=== PATIENT | female | born 1960 | race Caucasian/White ===

== ENCOUNTER 2016-11-29 18:41 | Observation (INO) | payer OTHER ==
[~2016-11-29] VITALS: Ht 175.3 cm; Wt 87.0 kg
[2016-11-29 18:43] VITALS: BP 104/58; PULSE 85; RESP 16; TEMP 97.9; O2SAT 96
[2016-11-29] MEDS ORDERED: CLON0.5T PO (20:19)
[2016-11-29] MEDS ORDERED: MELA5TAB15 PO (20:19)
[2016-11-29] MEDS ORDERED: LEVO50TA4 PO (20:19)
[2016-11-29] MEDS ORDERED: CHOL5000 PO (20:19)
[2016-11-29 21:00] VITALS: BP 96/58; PULSE 86; RESP 16; O2SAT 99
[2016-11-29] MEDS ORDERED: SODIUM CHLORIDE 0.9% FLUSH 10 ML FLUSH IV FLUSH PRN (21:00)
--- NOTE | 2016-11-29 21:20 | PD ---
HPI Chief Complaint: Abnormal Results Time Seen by Provider: 21:00 Travel History International Travel<30 days: No Contact w/Intl Traveler<30days: No Traveled to known affect area: No History of Present Illness HPI Patient's 56-year-old female presented to emergency on the advice of her credit front office developer for evaluation of jaundice and cirrhosis. History of alcoholism, she has been clean for approximately one year. She has had a history of elevated liver enzymes. She reports over the last 5 months she's lost 40 pounds, she has no appetite, she reports nausea and feeling full. Recently more recently she has noticed the yellowing of her skin and eyes. She reports a worsening of the swelling to her lower legs now up to the level of her knees bilaterally. She states that her thinking is slowed. She does state that she is short of breath with exertion and feels cold. Patient has a history of hypothyroidism, alcoholism, neuropathy. PFSH Past Medical History Depression: Yes Cirrhosis: Yes (DIAGNOSED 11/25/16) Thyroid Disease: Yes (HYPO, DIAGNOSED 11/25/16) ?: Not Past Surgical History Appendectomy: Yes Hysterectomy: Yes (PARTIAL) Social History Alcohol Use: No ("FORMER ALCOHOLIC") Tobacco Use: Yes (CIGARS) Substance Use: No Allergies-Medications (Allergen,Severity, Reaction): Coded Allergies: No Known Allergies (Unverified , 11/29/16) Reported Meds & Prescriptions Reported Meds & Active Scripts Active Reported Levothyroxine (Levothyroxine Sodium) 50 Mcg Tab 50 Mcg PO DAILY Clonazepam 0.5 Mg Tab 0.25 Mg PO BID Vitamin D3 (Cholecalciferol) 5,000 Unit Cap 5,000 Units PO DAILY Melatonin 5 Mg Tab 3 Mg PO HS Review of Systems Except as stated in HPI: all other systems reviewed are Neg General / Constitutional: Positive: Chills Cardiovascular: Positive: Dyspnea on exertion, Edema Gastrointestinal: Positive: Nausea, Abdominal Pain (bloating/distention), Loss of Appetite Skin: Positive Change in Pigmentation Physical Exam Narrative GENERAL: Well-developed, well-nourished, alert female. Resting comfortable, no acute distress. SKIN: Warm and dry. Jaundiced HEAD: Atraumatic. Normocephalic. EYES: Pupils equal and round. Positive scleral icterus. No injection or drainage. ENT: No nasal bleeding or discharge. Mucous membranes pink and moist. NECK: Trachea midline. No JVD. CARDIOVASCULAR: Regular rate and rhythm. Murmur noted RESPIRATORY: No accessory muscle use. Clear to auscultation. Breath sounds equal bilaterally. GASTROINTESTINAL: Abdomen soft, non-tender, distended. Hepatic and splenic margins not palpable. Positive bowel sounds. No rebound, no guarding. MUSCULOSKELETAL: Extremities without clubbing, cyanosis. No obvious deformities. 2+ pitting bilateral lower extremity edema NEUROLOGICAL: Awake and alert. No obvious cranial nerve deficits. Motor grossly within normal limits. Five out of 5 muscle strength in the arms and legs. Normal speech. PSYCHIATRIC: Appropriate mood and affect; insight and judgment normal. Data Data Last Documented VS Vital Signs Date Time Temp Pulse Resp B/P Pulse Ox O2 Delivery O2 Flow Rate FiO2 11/29/16 23:00 86 18 103/64 99 Room Air 11/29/16 18:43 97.9 Orders Complete Blood Count With Diff (11/29/16 20:57) Comprehensive Metabolic Panel (11/29/16 20:57) Lipase (11/29/16 20:57) Prothrombin Time / Inr (Pt) (11/29/16 20:57) Act Partial Throm Time (Ptt) (11/29/16 20:57) Ct Abd/Pel W Iv Contrast(Rout) (11/29/16 20:57) Iv Access Insert/Monitor (11/29/16 20:57) Ecg Monitoring (11/29/16 20:57) Oximetry (11/29/16 20:57) NPO (11/29/16 20:57) Sodium Chloride 0.9% Flush (Ns Flush) (11/29/16 21:00) Electrocardiogram (11/29/16 20:57) Ammonia (11/29/16 20:57) Gamma Gt (Ggt) (11/29/16 20:57) Iohexol 350 Inj (Omnipaque 350 Inj) (11/29/16 23:26) Direct Bilirubin (11/30/16 00:09) Admit Order (Ed Use Only) (11/30/16 ) Place In Observation (11/30/16 ) Vital Signs (Adult) Q4H (11/30/16 00:08) Activity Oob With Assistance (11/30/16 00:08) Power Supply Engineer / Telemetry .CONTINUOUS (11/30/16 00:08) Diet Npo (11/30/16 Breakfast) Sodium Chloride 0.9% Flush (Ns Flush) (11/30/16 00:15) Sodium Chloride 0.9% Flush (Ns Flush) (11/30/16 09:00) Comprehensive Metabolic Panel (11/30/16 06:00) Complete Blood Count With Diff (11/30/16 06:00) Naloxone Inj (Narcan Inj) (11/30/16 00:15) Consult Gastroenterology (11/30/16 ) Labs Laboratory Tests Test 11/29/16 11/29/16 21:02 21:04 White Blood Count 16.7 TH/MM3 Red Blood Count 3.75 MIL/MM3 Hemoglobin 13.5 GM/DL Hematocrit 40.7 % Mean Corpuscular Volume 108.4 FL Mean Corpuscular Hemoglobin 36.0 PG Mean Corpuscular Hemoglobin 33.3 % Concent Red Cell Distribution Width 18.5 % Platelet Count 184 TH/MM3 Mean Platelet Volume 9.2 FL Neutrophils (%) (Auto) 81.1 % Lymphocytes (%) (Auto) 8.8 % Monocytes (%) (Auto) 9.0 % Eosinophils (%) (Auto) 0.7 % Basophils (%) (Auto) 0.4 % Neutrophils # (Auto) 13.5 TH/MM3 Lymphocytes # (Auto) 1.5 TH/MM3 Monocytes # (Auto) 1.5 TH/MM3 Eosinophils # (Auto) 0.1 TH/MM3 Basophils # (Auto) 0.1 TH/MM3 CBC Comment DIFF FINAL Differential Comment Prothrombin Time 16.1 SEC Prothromb Time International 1.4 RATIO Ratio Activated Partial 52.4 SEC Thromboplast Time Sodium Level 133 MEQ/L Potassium Level 4.3 MEQ/L Chloride Level 100 MEQ/L Carbon Dioxide Level 26.5 MEQ/L Anion Gap 7 MEQ/L Blood Urea Nitrogen 7 MG/DL Creatinine 0.47 MG/DL Estimat Glomerular Filtration 137 ML/MIN Rate Random Glucose 74 MG/DL Calcium Level 8.8 MG/DL Total Bilirubin 11.2 MG/DL Gamma Glutamyl Transpeptidase 303 U/L Aspartate Amino Transf 123 U/L (AST/SGOT) Alanine Aminotransferase 51 U/L (ALT/SGPT) Alkaline Phosphatase 247 U/L Total Protein 7.1 GM/DL Albumin 1.9 GM/DL Lipase 95 U/L Direct Bilirubin 7.9 MG/DL Ammonia 50 MCMOL/L MDM Medical Decision Making Medical Screen Exam Complete: Yes Emergency Medical Condition: Yes Interpretation(s) Vital Signs Date Time Temp Pulse Resp B/P Pulse Ox O2 Delivery O2 Flow Rate FiO2 11/29/16 18:43 97.9 85 16 104/58 96 Differential Diagnosis Cirrhosis versus coagulopathy versus obstruction versus metabolic abnormality versus other Narrative Course Patient is a 56-year-old female presenting for evaluation of jaundice. Labs and imaging ordered and pending. Patient's vital signs are stable. Care of patient transferred to my attending physician at that admission. He will determine patient's disposition. Carol Dumont Nov 29, 2016 21:20
[2016-11-29 21:27] VITALS: O2SAT 98
[2016-11-29 21:36] LABS: AUTOMATED NEUTROPHIL # 13.5 TH/MM3 (1.8-7.7); BASOPHIL # 0.1 TH/MM3 (0-0.2); BASOPHIL % 0.4 % (0.0-2.0); EOSINOPHIL # 0.1 TH/MM3 (0-0.4); EOSINOPHIL % 0.7 % (0.0-4.0); HEMATOCRIT 40.7 % (35.0-46.0); HEMO FLAGS DIFF FINAL; LYMPH % 8.8 % (9.0-44.0); LYMPHOCYTE # 1.5 TH/MM3 (1.0-4.8); MEAN CELL VOLUME 108.4 FL (80.0-100.0); MEAN CORPUSCULAR HGB CONC 33.3 % (32.0-36.0); NEUT % 81.1 % (16.0-70.0); PLATELET COUNT 184 TH/MM3 (150-450); RED BLOOD COUNT 3.75 MIL/MM3 (4.00-5.30); RED CELL DISTRIBUTION WIDTH 18.5 % (11.6-17.2); WHITE BLOOD COUNT 16.7 TH/MM3 (4.0-11.0)
[2016-11-29 21:48] LABS: APTT (PATIENT) 52.4 SEC (24.3-30.1); INTERNATIONAL NORMALIZED RATIO 1.4 RATIO; PROTHROMBIN TIME - PATIENT 16.1 SEC (9.8-11.6)
[2016-11-29 22:16] LABS: ALKALINE PHOSPHATASE 247 U/L (45-117); ALT (GPT) 51 U/L (10-53); TOTAL BILIRUBIN ADULT 11.2 MG/DL (0.2-1.0)
[2016-11-29 22:26] LABS: ANION GAP 7 MEQ/L (5-15); AST (GOT) 123 U/L (15-37); BICARBONATE 26.5 MEQ/L (21.0-32.0); BLOOD UREA NITROGEN 7 MG/DL (7-18); CHLORIDE 100 MEQ/L (98-107); GAMMA GT 303 U/L (5-55); GLOMERULAR FILTRATION RATE 137 ML/MIN (>89); POTASSIUM 4.3 MEQ/L (3.5-5.1); SODIUM (NA) 133 MEQ/L (136-145)
[2016-11-29 23:00] VITALS: BP 103/64; PULSE 86; RESP 18; O2SAT 99
[2016-11-29] MEDS ORDERED: IOHEXOL 350 MG/ML 10 ML VIAL (for RAD DIAG) IV ONE (23:26)
--- NOTE | 2016-11-29 23:34 | PD ---
Data Data Last Documented VS Vital Signs Date Time Temp Pulse Resp B/P Pulse Ox O2 Delivery O2 Flow Rate FiO2 11/29/16 21:27 98 Room Air 11/29/16 18:43 97.9 85 16 104/58 Orders Complete Blood Count With Diff (11/29/16 20:57) Comprehensive Metabolic Panel (11/29/16 20:57) Lipase (11/29/16 20:57) Prothrombin Time / Inr (Pt) (11/29/16 20:57) Act Partial Throm Time (Ptt) (11/29/16 20:57) Ct Abd/Pel W Iv Contrast(Rout) (11/29/16 20:57) Iv Access Insert/Monitor (11/29/16 20:57) Ecg Monitoring (11/29/16 20:57) Oximetry (11/29/16 20:57) NPO (11/29/16 20:57) Sodium Chloride 0.9% Flush (Ns Flush) (11/29/16 21:00) Electrocardiogram (11/29/16 20:57) Ammonia (11/29/16 20:57) Gamma Gt (Ggt) (11/29/16 20:57) Iohexol 350 Inj (Omnipaque 350 Inj) (11/29/16 23:26) Direct Bilirubin (11/30/16 00:09) Admit Order (Ed Use Only) (11/30/16 ) Place In Observation (11/30/16 ) Vital Signs (Adult) Q4H (11/30/16 00:08) Activity Oob With Assistance (11/30/16 00:08) Thermal Molder / Telemetry .CONTINUOUS (11/30/16 00:08) Diet Npo (11/30/16 Breakfast) Sodium Chloride 0.9% Flush (Ns Flush) (11/30/16 00:15) Sodium Chloride 0.9% Flush (Ns Flush) (11/30/16 09:00) Comprehensive Metabolic Panel (11/30/16 06:00) Complete Blood Count With Diff (11/30/16 06:00) Naloxone Inj (Narcan Inj) (11/30/16 00:15) Consult Gastroenterology (11/30/16 ) Labs Laboratory Tests Test 11/29/16 11/29/16 21:02 21:04 White Blood Count 16.7 TH/MM3 Red Blood Count 3.75 MIL/MM3 Hemoglobin 13.5 GM/DL Hematocrit 40.7 % Mean Corpuscular Volume 108.4 FL Mean Corpuscular Hemoglobin 36.0 PG Mean Corpuscular Hemoglobin 33.3 % Concent Red Cell Distribution Width 18.5 % Platelet Count 184 TH/MM3 Mean Platelet Volume 9.2 FL Neutrophils (%) (Auto) 81.1 % Lymphocytes (%) (Auto) 8.8 % Monocytes (%) (Auto) 9.0 % Eosinophils (%) (Auto) 0.7 % Basophils (%) (Auto) 0.4 % Neutrophils # (Auto) 13.5 TH/MM3 Lymphocytes # (Auto) 1.5 TH/MM3 Monocytes # (Auto) 1.5 TH/MM3 Eosinophils # (Auto) 0.1 TH/MM3 Basophils # (Auto) 0.1 TH/MM3 CBC Comment DIFF FINAL Differential Comment Prothrombin Time 16.1 SEC Prothromb Time International 1.4 RATIO Ratio Activated Partial 52.4 SEC Thromboplast Time Sodium Level 133 MEQ/L Potassium Level 4.3 MEQ/L Chloride Level 100 MEQ/L Carbon Dioxide Level 26.5 MEQ/L Anion Gap 7 MEQ/L Blood Urea Nitrogen 7 MG/DL Creatinine 0.47 MG/DL Estimat Glomerular Filtration 137 ML/MIN Rate Random Glucose 74 MG/DL Calcium Level 8.8 MG/DL Total Bilirubin 11.2 MG/DL Gamma Glutamyl Transpeptidase 303 U/L Aspartate Amino Transf 123 U/L (AST/SGOT) Alanine Aminotransferase 51 U/L (ALT/SGPT) Alkaline Phosphatase 247 U/L Total Protein 7.1 GM/DL Albumin 1.9 GM/DL Lipase 95 U/L Ammonia 50 MCMOL/L [facility] Supervised Visit with PIA: Yes Interpretation(s) My review of EKG: Normal sinus rhythm at a rate of 86, normal axis, normal intervals, no acute ischemia. LABS: CBC is remarkable for white count of 16.7 thousand Markedly elevated AST ALT and total bili and alkaline phosphatase. Ammonia [address] abdomen and pelvis: Narrative Course The history, exam, and medical decision-making in the associated mid-level provider note were completed with my assistance. I reviewed and agree with the findings presented. I attest that I had a [id number] encounter with the patient on the same day, and personally performed and documented my assessment and findings in the medical record. *My assessment and Findings: Is a 56 year-old woman is a history of liver disease or past year or so. She quit drinking about a year or so ago. She presents emergency room referred in from her GI doctors office. She reports she saw Dr. Alvarado but states that she saw a female provider. She states that she went in because she was having worsening abdominal pain and distention and jaundice as well as worsening neuropathy symptoms she describes as generalized weakness and difficulty making a single step. Labs show significant lab abnormalities. Is apparently her acute over the past week or so as far as much worsening she's had. We don't have any old lab tests for her. I called and spoke with Dr. Pringle who did not see the patient is not familiar with her. It's unclear exactly why she was referred emergently to the ED. She does have multiple lab abnormalities that are of unclear chronicity. Speak with Dr. Mcconnell 2, will plan to observe the patient overnight, monitor for any evidence of infection, have GI see her and speak with the provider that saw her to get more information. Diagnosis Primary Impression: Cirrhosis Additional Impression: Liver failure Admitting Information Admitting Physician Requests: Admit Morteza Ferreira MD Nov 29, 2016 23:34
--- NOTE | 2016-11-29 23:43 | RADRPT ---
EXAM DATE/TIME: 11/29/2016 23:25 [facility] COMPARISON: No previous studies available for comparison. INDICATIONS : Abnormal labs and weight loss. IV CONTRAST: 95 cc Omnipaque 350 (iohexol) IV ORAL CONTRAST: No oral contrast ingested. RADIATION DOSE: 14.75 CTDIvol (mGy) MEDICAL HISTORY : Hypothyroidism. Cirrhosis. SURGICAL HISTORY : Appendectomy. Hysterectomy. ENCOUNTER: Initial ACUITY: 1 day PAIN SCALE: 0/10 LOCATION: abdomen TECHNIQUE: Volumetric scanning of the abdomen and pelvis was performed. Using automated exposure control and ad justment of the mA and/or kV according to patient size, radiation dose was kept as low as reasonably achievable to obtain optimal diagnostic quality images. DICOM format image data is available electro nically for review and comparison. FINDINGS: LOWER LUNGS: Atelectasis right lung base with small effusion. Left lung bases clear LIVER: Homogeneous density without lesion. The liver appears to be enlarged measuring 21.9 cm. There is telly e fatty infiltration throughout the liver. There is no dilation of the biliary tree. No calcified ga llstones. There is a trace of ascites adjacent to the liver SPLEEN: Normal size without lesion. There is a trace of ascites adjacent to spleen. PANCREAS: Within normal limits. KIDNEYS: Normal in size and shape. There is no mass, stone or hydronephrosis. ADRENAL GLANDS: Within normal limits. VASCULAR: There is no aortic aneurysm. BOWEL/MESENTERY: The stomach, small bowel, and colon demonstrate no acute abnormality. There is stool throughout the colon. There is no free intraperitoneal air. There is a trace of fluid in the lower abdomen. There is nonspecific edema in the mesenteric fat. ABDOMINAL WALL: Within normal limits. There is some nonspecific edema in the subcutaneous soft tissues. RETROPERITONEUM: There is no lymphadenopathy. BLADDER: No wall thickening or mass. REPRODUCTIVE: Within normal limits. INGUINAL: There is no lymphadenopathy or hernia. MUSCULOSKELETAL: Within normal limits for patient age. CONCLUSION: 1. There is fatty infiltration throughout the liver. The liver is enlarged measuring 21.9 cm. 2. There is a trace of free fluid in the upper abdomen and in the lower pelvis. 3. There is nonspecific edema in the subcutaneous soft tissues of the abdominal wall and mesenteric f at. 4. Mild right lower lung atelectasis with small effusion. Leoncio Parsons MD on November 29, 2016 at 23:36 Board Certified Radiologist. This report was verified electronically.
[2016-11-30] VITALS (8 sets, daily range): BP systolic 89–108; BP diastolic 52–62; PULSE 74–86; RESP 14–20; TEMP 96.6–98.6; O2SAT 92–96
[2016-11-30] MEDS ORDERED: NALOXONE HCL 0.4 MG/ML AMP IV PRN (00:15)
[2016-11-30] MEDS ORDERED: SODIUM CHLORIDE 0.9% FLUSH 10 ML FLUSH IV FLUSH PRN (00:15)
[2016-11-30 07:08] LABS: AUTOMATED NEUTROPHIL # 10.9 TH/MM3 (1.8-7.7); BASOPHIL # 0.1 TH/MM3 (0-0.2); BASOPHIL % 1.1 % (0.0-2.0); EOSINOPHIL # 0.2 TH/MM3 (0-0.4); EOSINOPHIL % 1.4 % (0.0-4.0); HEMATOCRIT 34.3 % (35.0-46.0); HEMO FLAGS DIFF FINAL; LYMPH % 12.5 % (9.0-44.0); LYMPHOCYTE # 1.8 TH/MM3 (1.0-4.8); MEAN CELL VOLUME 107.3 FL (80.0-100.0); MEAN CORPUSCULAR HEMOGLOBIN 36.3 PG (27.0-34.0); MEAN CORPUSCULAR HGB CONC 33.9 % (32.0-36.0); MONO % 7.5 % (0.0-8.0); NEUT % 77.5 % (16.0-70.0); PLATELET COUNT 146 TH/MM3 (150-450); RED CELL DISTRIBUTION WIDTH 18.1 % (11.6-17.2); WHITE BLOOD COUNT 14.1 TH/MM3 (4.0-11.0)
[2016-11-30 07:19] LABS: ALT (GPT) 41 U/L (10-53)
[2016-11-30 07:29] LABS: ALKALINE PHOSPHATASE 204 U/L (45-117); ANION GAP 5 MEQ/L (5-15); AST (GOT) 92 U/L (15-37); BICARBONATE 25.8 MEQ/L (21.0-32.0); BLOOD UREA NITROGEN 7 MG/DL (7-18); CHLORIDE 104 MEQ/L (98-107); GLOMERULAR FILTRATION RATE 259 ML/MIN (>89); SODIUM (NA) 135 MEQ/L (136-145); TOTAL BILIRUBIN ADULT 8.8 MG/DL (0.2-1.0)
[2016-11-30 07:30] LABS: POTASSIUM 4.4 MEQ/L (3.5-5.1)
--- NOTE | 2016-11-30 08:17 | PD.CONS ---
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 She was referred to our office for evaluation of elevated bilirubin and possible need for liver biopsy. She was seen on November 29, 2016, complaining of intermittent nausea and vomiting, decreased appetite, early satiety, and a 40 pound weight loss over the past 6 months. She also reported increased abdominal distention and swelling in her lower extremities. Her last outpatient labs revealed total bilirubin of 13.7, AST 144 ALT 68 alkaline phosphatase 317. She was referred to the ER for imaging and possible paracentesis. The patient reports that she was first told that she had liver cirrhosis last . She has a hx of heavy alcohol abuse , but states that she quit completely December 14, 2015. She has been jaundiced for about a week and started having increasing abdominal distention about 2 days ago. She is not on any diuretics at home. She reports decreased appetite with early satiety and intermittent nausea. She states that she can no longer taste foods and has lost about 40 lbs in 5 months. She has had intermittent chills, but denies fevers. She denies any abdominal pain, changes in bowels, melena, or hematochezia. She denies any history of varices or peptic ulcer disease. She has never had an EGD. She last had colonoscopy about 2 years ago in [place] and she reports this was normal without polyps. Abdomen/Pelvis CT (11/29/16)----> 1. There is fatty infiltration throughout the liver. The liver is enlarged measuring 21.9 cm. 2. There is a trace of free fluid in the upper abdomen and in the lower pelvis. 3. There is nonspecific edema in the subcutaneous soft tissues of the abdominal wall and mesenteric fat. 4. Mild right lower lung atelectasis with small effusion. She has not had the liver workup as of yet. She was recently started on Synthroid and vitamin D. She does not take any herbal supplements. She denies any known history of hepatitis or family members with known liver disease. (Tiana Lee) PFSH Past Medical History Liver cirrhosis Ascites Hx alcoholism Vit. D Deficiency Hypothyroidism Past Surgical History Colonoscopy Right ulnar nerve release Right elbow tendon repair Subtotal hysterectomy Appendectomy Bone spur removed from nasal cavity (Tiana Lee) Coded Allergies: No Known Allergies (Unverified , 11/29/16) Medications Allergies Coded Allergies Type Severity Reaction Last Updated Verified No Known Allergies 11/29/16 No Active Scripts Medications Dose Route/Sig Days Date Category Levothyroxine (Levothyroxine Sodium) 50 Mcg Tab 50 Mcg PO DAILY 11/29/16 Reported Clonazepam 0.5 Mg Tab 0.25 Mg PO BID 11/29/16 Reported Vitamin D3 (Cholecalciferol) 5,000 Unit Cap 5,000 Units PO DAILY 11/29/16 Reported Melatonin 5 Mg Tab 3 Mg PO HS 11/29/16 Reported Family History No family history of liver disease. Father with palpitations, heart disease, prostate cancer Mother had breast cancer Social History Smokes cigars daily, 5 Quit drinking alcohol completely December 04, 2015 No illicit drug use (Tiana Lee) Review of Systems Constitutional: COMPLAINS OF: Fatigue, Weight loss, DENIES: Change in appetite Respiratory: DENIES: Cough, Shortness of breath Cardiovascular: DENIES: Chest pain Gastrointestinal: COMPLAINS OF: Nausea, Anorexia, Swelling of Abdomen, DENIES : Abdominal pain, Black stools, Bloody stools, Constipation, Diarrhea, Vomiting , Heartburn, Hematemesis Genitourinary: COMPLAINS OF: Urinary frequency, Urgency Musculoskeletal: DENIES: Back pain Integumentary: COMPLAINS OF: Jaundice Hematologic/lymphatic: DENIES: Bruising Neurologic: DENIES: Headache Psychiatric: DENIES: Confusion (Tiana Lee) GI Exam Vitals I&O Vital Signs Date Time Temp Pulse Resp B/P Pulse Ox O2 Delivery O2 Flow Rate FiO2 11/30/16 04:45 98.6 78 20 96/54 92 11/30/16 01:18 97.4 86 20 98/52 95 11/29/16 23:00 86 18 103/64 99 Room Air 11/29/16 21:27 98 Room Air 11/29/16 21:00 86 16 96/58 99 Room Air 11/29/16 18:43 97.9 85 16 104/58 96 Imaging Last Impressions Abdomen/Pelvis CT 11/29/162056 Signed Impressions: Service Date/Time: Tuesday, November 29, 2016 23:25 - CONCLUSION: 1. There is fatty infiltration throughout the liver. The liver is enlarged measuring 21.9 cm. 2. There is a trace of free fluid in the upper abdomen and in the lower pelvis. 3. There is nonspecific edema in the subcutaneous soft tissues of the abdominal wall and mesenteric fat. 4. Mild right lower lung atelectasis with small effusion. Leoncio Parsons MD Laboratory Test 11/29/16 11/29/16 11/30/16 21:02 21:04 06:30 White Blood Count 16.7 TH/MM3 14.1 TH/MM3 Red Blood Count 3.75 MIL/MM3 3.20 MIL/MM3 Hemoglobin 13.5 GM/DL 11.6 GM/DL Hematocrit 40.7 % 34.3 % Mean Corpuscular Volume 108.4 FL 107.3 FL Mean Corpuscular Hemoglobin 36.0 PG 36.3 PG Mean Corpuscular Hemoglobin 33.3 % 33.9 % Concent Red Cell Distribution Width 18.5 % 18.1 % Platelet Count 184 TH/MM3 146 TH/MM3 Mean Platelet Volume 9.2 FL 8.7 FL Neutrophils (%) (Auto) 81.1 % 77.5 % Lymphocytes (%) (Auto) 8.8 % 12.5 % Monocytes (%) (Auto) 9.0 % 7.5 % Eosinophils (%) (Auto) 0.7 % 1.4 % Basophils (%) (Auto) 0.4 % 1.1 % Neutrophils # (Auto) 13.5 TH/MM3 10.9 TH/MM3 Lymphocytes # (Auto) 1.5 TH/MM3 1.8 TH/MM3 Monocytes # (Auto) 1.5 TH/MM3 1.0 TH/MM3 Eosinophils # (Auto) 0.1 TH/MM3 0.2 TH/MM3 Basophils # (Auto) 0.1 TH/MM3 0.1 TH/MM3 CBC Comment DIFF FINAL DIFF FINAL Differential Comment Prothrombin Time 16.1 SEC Prothromb Time International 1.4 RATIO Ratio Activated Partial 52.4 SEC Thromboplast Time Sodium Level 133 MEQ/L 135 MEQ/L Potassium Level 4.3 MEQ/L 4.4 MEQ/L Chloride Level 100 MEQ/L 104 MEQ/L Carbon Dioxide Level 26.5 MEQ/L 25.8 MEQ/L Anion Gap 7 MEQ/L 5 MEQ/L Blood Urea Nitrogen 7 MG/DL 7 MG/DL Creatinine 0.47 MG/DL 0.27 MG/DL Estimat Glomerular Filtration 137 ML/MIN 259 ML/MIN Rate Random Glucose 74 MG/DL 68 MG/DL Calcium Level 8.8 MG/DL 8.2 MG/DL Total Bilirubin 11.2 MG/DL 8.8 MG/DL Gamma Glutamyl Transpeptidase 303 U/L Aspartate Amino Transf 123 U/L 92 U/L (AST/SGOT) Alanine Aminotransferase 51 U/L 41 U/L (ALT/SGPT) Alkaline Phosphatase 247 U/L 204 U/L Total Protein 7.1 GM/DL 5.8 GM/DL Albumin 1.9 GM/DL 1.6 GM/DL Lipase 95 U/L Direct Bilirubin 7.9 MG/DL Ammonia 50 MCMOL/L Physical Examination HEENT: Normocephalic; atraumatic; + jaundice. CHEST: CTA. CARDIAC: RRR. ABDOMEN: Soft, nondistended, nontender; no hepatosplenomegaly; bowel sounds are present in all four quadrants. EXTREMITIES: Mild lower extremity edema. SKIN: Normal; no rash; + jaundice. FAMILY MEDICINE PHYSICIAN: No focal deficits; alert and oriented times three. (Tiana Lee) Assessment and Plan Plan ASSESSMENT: - Jaundice, Elevated LFTs. Pt was told last week that she has liver cirrhosis. She has a past history of heavy etoh abuse, but states she stopped drinking completely on December 14, 2015 and has not had any ETOH since that time. She was referred to our office as outpatient for elevated LFTs, possible liver biopsy. Outpatient labs at that time revealed total bilirubin of 13.7, AST 144 ALT 68 alkaline phosphatase 317. She was referred to the ER for imaging and possible paracentesis. Abdomen/Pelvis CT (11/29/16)--- -> 1. There is fatty infiltration throughout the liver. The liver is enlarged measuring 21.9 cm. 2. There is a trace of free fluid in the upper abdomen and in the lower pelvis. 3. There is nonspecific edema in the subcutaneous soft tissues of the abdominal wall and mesenteric fat. 4. Mild right lower lung atelectasis with small effusion. She has not had the liver workup as of yet. She was recently started on Synthroid and vitamin D. She does not take any herbal supplements. She denies any known history of hepatitis or family members with known liver disease. Will order liver workup, check MRCP, and order liver biopsy for tomorrow. MELD 6. - Ascites, increasing abdominal girth and lower extremity swelling for 2 days- Small amount of free fluid on CT- not enough for paracentesis. She does mention chills and WBC 14.1. Will add Ceftriaxone for SBP prophylaxis. She is not on any diuretics at home. - Nausea and vomiting, decreased appetite, early satiety, and a 40 pound weight loss over the past 6 months. She denies any abdominal pain, changes in bowels, melena, or hematochezia. She denies any history of varices or PUD. She has never had an EGD. She last had colonoscopy about 2 years ago in [place] and she reports this was normal without polyps. - Macrocytosis. States quit drinking 1 year ago. MCV 10.7.3. Will check B12, Folate. - Leukcytosis. Does c/o urinary frequency, urgency. Get u/a. WBC 14.1. - Coagulopathy, Thrombocytopenia. PT 16.1, INR 1.4, APTT 52.4. Plt 146. - Hypothyroidism, Vit. D Deficiency, per attending PLAN: - Clear liquids until after MRCP - MRCP - Hepatitis panel - AFP level - MARANDA, ASMA, AMA - Ferritin, Iron Saturation - Ceruloplasmin, Alpha 1 Antitrypsin - Add Ceftriaxone - Add lasix - Add spironolactone - U/A, C&S if indicated - Protonix 40mg IV daily - Consult IR for liver biopsy in am - CBC, CMP, PT/INR in am - Supportive care - Further recommendations to follow based on results of above - PT seen and examined by Dr. Pringle and myself and this note is written on her behalf (Tiana Lee) Physician Comments seen, examined agree with above (Lauren Pringle MD) Tiana Lee Nov 30, 2016 08:17 Lauren Pringle MD Nov 30, 2016 18:35
[2016-11-30] MEDS: SODIUM CHLORIDE 0.9% FLUSH 10 ML FLUSH IV FLUSH SCH ×2 (10:00→22:35)
--- NOTE | 2016-11-30 11:09 | HHI.HP ---
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 Apparently on of last week she had lab work done and her primary care doctor referred her to a restaurant management internship to review the labs and the GI physician requested that she come to the emergency room for workup. She states that she had a weight loss of 40 pounds and for the past 5 months. She admits to anorexia secondary to the food not tasting good. States that her urine in the mornings is red/orange and by the end of the day after hydrating herself. Tends to go back to normal. She denies any abdominal pain, nausea or vomiting, chest pain or shortness of breath. She admits to jaundice which began about a week ago. She admits to chills overnight however denies any fevers. Review of Systems Except as stated in HPI: all other systems reviewed are Neg Past Family Social History Past Medical History hypothyroidism, dystonia, insomnia and neuropathy Vit. D Deficiency Past Surgical History Right ulnar nerve release Right elbow tendon repair Subtotal hysterectomy Appendectomy Bone spur removed from nasal cavity Allergies: Coded Allergies: No Known Allergies (Unverified , 11/29/16) Family History No family history of liver disease. Father with palpitations, heart disease, prostate cancer Mother had breast cancer Social History Smokes cigars daily, 5 for the past 25 years Quit drinking alcohol completely December 04, 2015. 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 Denies any illegal drug use however does admit to smoking pot once at age 24. Physical Exam Vital Signs Vital Signs Date Time Temp Pulse Resp B/P Pulse Ox O2 Delivery O2 Flow Rate FiO2 11/30/16 08:18 98.0 79 14 97/62 95 11/30/16 04:45 98.6 78 20 96/54 92 11/30/16 01:18 97.4 86 20 98/52 95 11/29/16 23:00 86 18 103/64 99 Room Air 11/29/16 21:27 98 Room Air 11/29/16 21:00 86 16 96/58 99 Room Air 11/29/16 18:43 97.9 85 16 104/58 96 Physical Exam GENERAL: This is a well-nourished, well-developed patient. SKIN: Skin is jaundiced. Cool and dry HEAD: Atraumatic. Normocephalic. EYES: Pupils equal round and reactive. Extraocular motions intact. + scleral icterus. No injection or drainage. ENT: Nose without drainage. Throat without erythema, tonsillar hypertrophy or exudate. Airway patent. NECK: Trachea midline. No JVD or lymphadenopathy. Supple, nontender, no meningeal signs. CARDIOVASCULAR: Regular rate and rhythm without murmurs. RESPIRATORY: Clear to auscultation. Breath sounds equal bilaterally. No wheezes. GASTROINTESTINAL: Abdomen soft, non-tender, nondistended. Hepatomegaly palpated and patient is tender in that area. No guarding or rebound. MUSCULOSKELETAL: Extremities with edema noted 1+ (lower extremities). No calf tenderness. Negative Homans sign bilaterally. NEUROLOGICAL: Awake and alert. Cranial nerves II through XII intact. Motor and sensory grossly within normal limits. Five out of 5 muscle strength in all muscle groups. Normal speech. Laboratory Laboratory Tests Test 11/29/16 11/29/16 11/30/16 21:02 21:04 06:30 White Blood Count 16.7 14.1 Red Blood Count 3.75 3.20 Hemoglobin 13.5 11.6 Hematocrit 40.7 34.3 Mean Corpuscular Volume 108.4 107.3 Mean Corpuscular Hemoglobin 36.0 36.3 Mean Corpuscular Hemoglobin 33.3 33.9 Concent Red Cell Distribution Width 18.5 18.1 Platelet Count 184 146 Mean Platelet Volume 9.2 8.7 Neutrophils (%) (Auto) 81.1 77.5 Lymphocytes (%) (Auto) 8.8 12.5 Monocytes (%) (Auto) 9.0 7.5 Eosinophils (%) (Auto) 0.7 1.4 Basophils (%) (Auto) 0.4 1.1 Neutrophils # (Auto) 13.5 10.9 Lymphocytes # (Auto) 1.5 1.8 Monocytes # (Auto) 1.5 1.0 Eosinophils # (Auto) 0.1 0.2 Basophils # (Auto) 0.1 0.1 CBC Comment DIFF FINAL DIFF FINAL Differential Comment Prothrombin Time 16.1 Prothromb Time International 1.4 Ratio Activated Partial 52.4 Thromboplast Time Sodium Level 133 135 Potassium Level 4.3 4.4 Chloride Level 100 104 Carbon Dioxide Level 26.5 25.8 Anion Gap 7 5 Blood Urea Nitrogen 7 7 Creatinine 0.47 0.27 Estimat Glomerular Filtration 137 259 Rate Random Glucose 74 68 Calcium Level 8.8 8.2 Total Bilirubin 11.2 8.8 Gamma Glutamyl Transpeptidase 303 Aspartate Amino Transf 123 92 (AST/SGOT) Alanine Aminotransferase 51 41 (ALT/SGPT) Alkaline Phosphatase 247 204 Total Protein 7.1 5.8 Albumin 1.9 1.6 Lipase 95 Direct Bilirubin 7.9 Ammonia 50 Result Diagram: 11/30/1662911/30/16629 Imaging Last Impressions Abdomen/Pelvis CT 11/29/162056 Signed Impressions: Service Date/Time: Tuesday, November 29, 2016 23:25 - CONCLUSION: 1. There is fatty infiltration throughout the liver. The liver is enlarged measuring 21.9 cm. 2. There is a trace of free fluid in the upper abdomen and in the lower pelvis. 3. There is nonspecific edema in the subcutaneous soft tissues of the abdominal wall and mesenteric fat. 4. Mild right lower lung atelectasis with small effusion. Leoncio Parsons MD Assessment and Plan Assessment and Plan Transaminitis, hyperbilirubinemia: Patient presented to the emergency room upon the request of her restaurant management internship. She presented with jaundice. T bili was elevated to 11.2 on admission. LFTs elevated with AST 303 and ALT 103. Patient quit drinking about a year ago. CT abdomen showed " fatty infiltration throughout the liver. The liver is enlarged measuring 21.9 cm. nonspecific edema in the subcutaneous soft tissues of the abdominal wall and mesenteric fat. " GI consulted. Patient was started on Rocephin. Iron studies were ordered by GI including adding Lasix, spironolactone. Patient has been scheduled for MRCP. She will also undergo a liver biopsy in the morning. Monitor LFTs and T bili levels. Hyperammonemia: Will give lactulose. Monitor trend. On admission level was 50 Hypothyroidism: Resume home medication. Insomnia: Resume melatonin DVT prophylaxis: SCD/ Junior Code Status DNR Discussed Condition With patient Johnna Parikh MD Nov 30, 2016 11:09
[2016-11-30 12:39] LABS: BLOOD, URINE NEG (NEG); GLUCOSE,URINE NEG (NEG); KETONE, URINE NEG (NEG); MUCUS URINE MANY /lpf (OCC); NITRITE,URINE NEG (NEG); SQUAMOUS EPITHELIAL CELL URINE 3 /hpf (0-5)
[2016-11-30 12:41] LABS: URINE COLOR DARK-BROWN (YELLW/STRAW)
[2016-11-30 12:44] LABS: COMMENT (UR) CULT NOT INDICATED; CULTURE IF INDICATED CULT NOT INDICATED
[2016-11-30 13:05] LABS: APTT (PATIENT) 49.2 SEC (24.3-30.1)
[2016-11-30] MEDS: SPIRONOLACTONE 25 MG TAB PO SCH (13:08)
[2016-11-30] MEDS: cefTRIAXone INJ 1,000 MG in SODIUM CHLORIDE 0.9% INJ 100 ML IV SCH (13:08)
[2016-11-30 13:14] LABS: TRANSFERRIN IRON PROFILE 42 MG/DL (200-360)
[2016-11-30 13:18] LABS: FERRITIN 779 NG/ML (8-252)
[2016-11-30] MEDS ORDERED: PILL SPLITTER OTHER PRN (15:00)
--- NOTE | 2016-11-30 18:47 | EKG ---
Date Performed: 11/29/2016 Time Performed: 21:24:24 PTAGE: 56 years EKG: Sinus rhythm NONSPECIFIC T-WAVE ABNORMALITY BORDERLINE ECG NO PREVIOUS TRACING DOCTOR: Chidi Perez Interpretating Date/Time 11/30/2016 18:45:46
[2016-11-30] MEDS: FUROSEMIDE 20 MG TAB PO SCH (19:43)
[2016-11-30] MEDS ORDERED: MELATONIN 5 MG TAB PO SCH (21:00)
[2016-11-30] MEDS: clonazePAM 0.5 MG TAB PO SCH (22:29)
--- NOTE | 2016-11-30 23:30 | RADRPT ---
EXAM DATE/TIME: 11/30/2016 21:50 [facility] COMPARISON: CT ABDOMEN & PELVIS W CONTRAST, November 29, 2016, 23:25. INDICATIONS : Abdominal pain. Juandice and distension. MEDICAL HISTORY : Cirrhosis. Liver failure. Hypothyroidism. SURGICAL HISTORY : Appendectomy. Hysterectomy. Right elbow surgery. ENCOUNTER: Subsequent ACUITY: 2 day PAIN SCORE: 5/10 LOCATION: Abdomen. TECHNIQUE: Multiplanar, multisequence magnetic resonance imaging of the abdomen was performed. High-resolution 3D dataset was utilized to reconstruct maximum-intensity projection (MIP) images. FINDINGS: INTRAHEPATIC BILE DUCTS: Within normal limits. No significant anatomical variant is present. EXTRAHEPATIC BILE DUCTS: The common bile duct measures 3 mm No stone or filling defect is identified. GALLBLADDER: There appears to be some layering sludge in the gallbladder. Gallbladder wall is not thickened. No de finite stones are seen however, tiny stones can be hidden within the sludge. LIVER: The liver is enlarged measuring 21.5 cm. The parenchyma appears to be mildly heterogeneous. No mass o ccupying lesions are demonstrated. There appears to be some areas of fatty infiltration versus mild h epatocellular disease.. PANCREAS: The main pancreatic duct is normal in size. Signal intensity is within normal limits. No mass is vis ualized on this non-contrast exam. OTHER: There is a trace of ascites adjacent to the liver and the spleen. There is some nonspecific edema in the mesenteric fat. A few small benign-appearing bilateral renal cysts are demonstrated. There is no evidence of hydronephrosis. CONCLUSION: 1. The liver appears to be diffusely enlarged measuring 21.5 cm. There appears to be fatty areas of i nfiltration involving the liver versus mild hepatocellular disease. No evidence of biliary tract obst ruction. 2. There appears to be at least layering sludge in the gallbladder. The common bile duct is normal in size at 3 mm. 3. Trace of ascites around the liver and spleen. Nonspecific edema in the mesenteric fat. Leoncio Parsons MD on November 30, 2016 at 23:21 Board Certified Radiologist. This report was verified electronically.
[2016-12-01] VITALS (14 sets, daily range): BP systolic 80–98; BP diastolic 45–62; PULSE 69–91; RESP 13–20; TEMP 97.1–98.7; O2SAT 94–98
[2016-12-01 05:41] LABS: AUTOMATED NEUTROPHIL # 10.9 TH/MM3 (1.8-7.7); BASOPHIL # 0.1 TH/MM3 (0-0.2); BASOPHIL % 0.4 % (0.0-2.0); EOSINOPHIL # 0.2 TH/MM3 (0-0.4); EOSINOPHIL % 1.6 % (0.0-4.0); HEMATOCRIT 33.4 % (35.0-46.0); HEMO FLAGS DIFF FINAL; LYMPH % 11.5 % (9.0-44.0); LYMPHOCYTE # 1.6 TH/MM3 (1.0-4.8); MEAN CELL VOLUME 106.1 FL (80.0-100.0); MEAN CORPUSCULAR HEMOGLOBIN 36.7 PG (27.0-34.0); MEAN CORPUSCULAR HGB CONC 34.5 % (32.0-36.0); NEUT % 78.5 % (16.0-70.0); PLATELET COUNT 146 TH/MM3 (150-450); RED BLOOD COUNT 3.15 MIL/MM3 (4.00-5.30); RED CELL DISTRIBUTION WIDTH 18.2 % (11.6-17.2); WHITE BLOOD COUNT 13.9 TH/MM3 (4.0-11.0)
[2016-12-01] MEDS ORDERED: LEVOTHYROXINE SODIUM 50 MCG TAB PO SCH (06:00)
[2016-12-01 06:05] LABS: ANION GAP 6 MEQ/L (5-15); AST (GOT) 100 U/L (15-37); BICARBONATE 25.6 MEQ/L (21.0-32.0); BLOOD UREA NITROGEN 7 MG/DL (7-18); CHLORIDE 102 MEQ/L (98-107); GLOMERULAR FILTRATION RATE 297 ML/MIN (>89); POTASSIUM 3.7 MEQ/L (3.5-5.1); SODIUM (NA) 134 MEQ/L (136-145)
[2016-12-01 06:06] LABS: ALT (GPT) 40 U/L (10-53)
[2016-12-01 06:09] LABS: ALKALINE PHOSPHATASE 192 U/L (45-117); TOTAL BILIRUBIN ADULT 8.8 MG/DL (0.2-1.0)
[2016-12-01 06:16] LABS: INTERNATIONAL NORMALIZED RATIO 1.5 RATIO; PROTHROMBIN TIME - PATIENT 17.1 SEC (9.8-11.6)
[2016-12-01] MEDS: SODIUM CHLORIDE 0.9% FLUSH 10 ML FLUSH IV FLUSH SCH (08:14)
[2016-12-01] MEDS: clonazePAM 0.5 MG TAB PO SCH (08:17)
[2016-12-01] MEDS: SPIRONOLACTONE 25 MG TAB PO SCH (08:19)
[2016-12-01] MEDS: FUROSEMIDE 20 MG TAB PO SCH ×2 (08:20→17:20)
[2016-12-01] MEDS ORDERED: CHOLECALCIFEROL (VIT D3) 5000 UNIT CAP PO SCH (09:00)
[2016-12-01] MEDS ORDERED: LACTULOSE SYRUP 20 GM/30 ML CUP PO SCH (09:00)
--- NOTE | 2016-12-01 12:33 | HHI.PR ---
Subjective Remarks Pt feeling ok. Denies any CP/SOB/N/V. states she doesn't have much of an appetite today Discussed w RN, liver biopsy scheduled for later today Objective Vitals Vital Signs Date Time Temp Pulse Resp B/P Pulse Ox O2 Delivery O2 Flow Rate FiO2 12/01/16 12:05 97.7 76 15 91/52 98 12/01/16 07:11 97.8 74 15 82/50 95 12/01/16 04:10 78 12/01/16 03:16 98.7 70 20 97/60 94 12/01/16 00:03 79 11/30/16 23:24 96.7 82 20 108/55 93 11/30/16 20:44 96.6 76 20 98/53 96 11/30/16 20:15 79 11/30/16 18:54 74 Result Diagram: 12/01/16 0511 12/01/16 0511 Imaging Last Impressions Cholangiopancreatography MRI 11/30/16 0000 Signed Impressions: Service Date/Time: Wednesday, November 30, 2016 21:50 - CONCLUSION: 1. The liver appears to be diffusely enlarged measuring 21.5 cm. There appears to be fatty areas of infiltration involving the liver versus mild hepatocellular disease. No evidence of biliary tract obstruction. 2. There appears to be at least layering sludge in the gallbladder. The common bile duct is normal in size at 3 mm. 3. Trace of ascites around the liver and spleen. Nonspecific edema in the mesenteric fat. Leoncio Parsons MD Abdomen/Pelvis CT 11/29/162056 Signed Impressions: Service Date/Time: Tuesday, November 29, 2016 23:25 - CONCLUSION: 1. There is fatty infiltration throughout the liver. The liver is enlarged measuring 21.9 cm. 2. There is a trace of free fluid in the upper abdomen and in the lower pelvis. 3. There is nonspecific edema in the subcutaneous soft tissues of the abdominal wall and mesenteric fat. 4. Mild right lower lung atelectasis with small effusion. Leoncio Parsons MD Objective Remarks GENERAL: This is a well-nourished, well-developed patient. SKIN: Skin is jaundiced. Cool and dry HEAD: Atraumatic. Normocephalic. EYES: Pupils equal round and reactive. Extraocular motions intact. + scleral icterus. No injection or drainage. ENT: Nose without drainage. Throat without erythema, tonsillar hypertrophy or exudate. Airway patent. NECK: Trachea midline. No JVD or lymphadenopathy. Supple, nontender, no meningeal signs. CARDIOVASCULAR: Regular rate and rhythm without murmurs. RESPIRATORY: Clear to auscultation. Breath sounds equal bilaterally. No wheezes. GASTROINTESTINAL: Abdomen soft, non-tender, nondistended. Hepatomegaly palpated and patient is tender in that area. No guarding or rebound. MUSCULOSKELETAL: Extremities with edema noted 1+ (lower extremities) but improved. No calf tenderness. Negative Homans sign bilaterally. NEUROLOGICAL: Awake and alert. Cranial nerves II through XII intact. Motor and sensory grossly within normal limits. Five out of 5 muscle strength in all muscle groups. Normal speech. 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 She presented with jaundice. T bili was elevated to 11.2 on admission. LFTs elevated with AST 303 and ALT 103 on admission, trending down. Patient quit drinking about a year ago. CT abdomen showed " fatty infiltration throughout the liver. The liver is enlarged measuring 21.9 cm. nonspecific edema in the subcutaneous soft tissues of the abdominal wall and mesenteric fat." MRCP shows " The liver appears to be diffusely enlarged measuring 21.5 cm. There appears to be fatty areas of infiltration involving the liver versus mild hepatocellular disease. No evidence of biliary tract obstruction. There appears to be at least layering sludge in the gallbladder. The common bile duct is normal in size at 3 mm. Trace of ascites around the liver and spleen" Pt is scheduled for liver biopsy today. GI following, awaiting their recs. Patient on Rocephin. Iron studies show TIBC 59, %sat 100 and ferritin 779, suspect elevated ferritin levels could be from hepatocellular damage from long hx of alcohol use. Pt's MCV is 106.1. on Lasix, spironolactone. continue to monitor LFTs and T bili levels which are trending down. Hyperammonemia: on lactulose. Monitor trend. On admission level was 50 now up to 70, consider increasing lactulose dosing if worsening tomorrow. Hypothyroidism: Resume home medication. Insomnia: Resume melatonin DVT prophylaxis: SCD/ Junior Discharge Planning liver biopsy today. f/u labwork in am awaiting final recs from Johnna Zepeda MD Dec 01, 2016 12:33
[2016-12-01] MEDS: cefTRIAXone INJ 1,000 MG in SODIUM CHLORIDE 0.9% INJ 100 ML IV SCH (12:34)
[2016-12-01] MEDS ORDERED: LIDOCAINE 1%/EPINEPHrine 1:100,000 SOLN 20 ML VIAL ONE (13:39)
[2016-12-01] MEDS ORDERED: fentaNYL CITRATE 250 MCG/5 ML AMP ONE (13:42)
[2016-12-01] MEDS ORDERED: MIDAZOLAM HCL 5 MG/5 ML VIAL ONE (13:42)
--- NOTE | 2016-12-01 15:05 | PD.RAD ---
Post CT Procedure Prog Note Pre Procedure Diagnosis: (1) Cirrhosis (2) Liver failure Post Procedure Diagnosis: Procedure Date: Dec 01, 2016 Supervising Radiologist: Saad Scott Proceduralist/Assist: Marisela Brand Anesthesia: Conscious Sedation Plan of Activity Patient to Unit: ROPU Patient Condition: Good See PACS Report for procedural detail/treatment Saad Scott MD Dec 01, 2016 15:05
[2016-12-01 15:06] LABS: ANA SCREEN NEG (NEG)
--- NOTE | 2016-12-01 15:19 | HHI.GIFU ---
Subjective Remarks Pt resting comfortably in bed, c/o lower leg swelling, is tired. No abd pain or nausea. (Sridevi Mariee) Objective Vitals I&O Vital Signs Date Time Temp Pulse Resp B/P Pulse Ox O2 Delivery O2 Flow Rate FiO2 12/01/16 12:05 97.7 76 15 91/52 98 12/01/16 07:11 97.8 74 15 82/50 95 12/01/16 04:10 78 12/01/16 03:16 98.7 70 20 97/60 94 12/01/16 00:03 79 11/30/16 23:24 96.7 82 20 108/55 93 11/30/16 20:44 96.6 76 20 98/53 96 11/30/16 20:15 79 11/30/16 18:54 74 Laboratory Laboratory Tests Test 12/01/16 05:11 White Blood Count 13.9 Red Blood Count 3.15 Hemoglobin 11.5 Hematocrit 33.4 Mean Corpuscular Volume 106.1 Mean Corpuscular Hemoglobin 36.7 Mean Corpuscular Hemoglobin 34.5 Concent Red Cell Distribution Width 18.2 Platelet Count 146 Mean Platelet Volume 9.0 Neutrophils (%) (Auto) 78.5 Lymphocytes (%) (Auto) 11.5 Monocytes (%) (Auto) 8.0 Eosinophils (%) (Auto) 1.6 Basophils (%) (Auto) 0.4 Neutrophils # (Auto) 10.9 Lymphocytes # (Auto) 1.6 Monocytes # (Auto) 1.1 Eosinophils # (Auto) 0.2 Basophils # (Auto) 0.1 CBC Comment DIFF FINAL Differential Comment Prothrombin Time 17.1 Prothromb Time International 1.5 Ratio Sodium Level 134 Potassium Level 3.7 Chloride Level 102 Carbon Dioxide Level 25.6 Anion Gap 6 Blood Urea Nitrogen 7 Creatinine 0.24 Estimat Glomerular Filtration 297 Rate Random Glucose 79 Calcium Level 8.0 Total Bilirubin 8.8 Aspartate Amino Transf 100 (AST/SGOT) Alanine Aminotransferase 40 (ALT/SGPT) Alkaline Phosphatase 192 Ammonia 71 Total Protein 5.8 Albumin 1.6 Imaging Last Impressions Cholangiopancreatography MRI 11/30/16 0000 Signed Impressions: Service Date/Time: Wednesday, November 30, 2016 21:50 - CONCLUSION: 1. The liver appears to be diffusely enlarged measuring 21.5 cm. There appears to be fatty areas of infiltration involving the liver versus mild hepatocellular disease. No evidence of biliary tract obstruction. 2. There appears to be at least layering sludge in the gallbladder. The common bile duct is normal in size at 3 mm. 3. Trace of ascites around the liver and spleen. Nonspecific edema in the mesenteric fat. Leoncio Parsons MD Abdomen/Pelvis CT 11/29/162056 Signed Impressions: Service Date/Time: Tuesday, November 29, 2016 23:25 - CONCLUSION: 1. There is fatty infiltration throughout the liver. The liver is enlarged measuring 21.9 cm. 2. There is a trace of free fluid in the upper abdomen and in the lower pelvis. 3. There is nonspecific edema in the subcutaneous soft tissues of the abdominal wall and mesenteric fat. 4. Mild right lower lung atelectasis with small effusion. Leoncio Parsons MD Physical Exam HEENT: PERRL; normocephalic; atraumatic; + icterus CHEST: CTA CARDIAC: RRR ABDOMEN: Soft, distended, nontender, dull; no hepatosplenomegaly; bowel sounds are present in all four quadrants. EXTREMITIES: No clubbing, cyanosis, + pitting edema BLE SKIN: Normal; no rash; + jaundice. TIMING INSPECTOR: No focal deficits; alert and oriented times three. (Sridevi Mariee [facility]) Assessment and Plan Plan ASSESSMENT: - Jaundice, Elevated LFTs. Pt was told last week that she has liver cirrhosis. She has a past history of heavy etoh abuse, but states she stopped drinking completely on December 14, 2015 and has not had any ETOH since that time. She was referred to our office as outpatient for elevated LFTs, possible liver biopsy. Outpatient labs at that time revealed total bilirubin of 13.7, AST 144 ALT 68 alkaline phosphatase 317. She was referred to the ER for imaging and possible paracentesis. MRCP 11-30-16 --> enlarged liver, fatty infiltrate vs mild hepatocellular dz, no evidence biliary tract obstruction, layering sludge gallbladder, CBD normal 3mm, trace ascites, nonspecific edema mesenteric fat Abdomen/Pelvis CT (11/29/16)----> 1. There is fatty infiltration throughout the liver. The liver is enlarged measuring 21.9 cm. 2. There is a trace of free fluid in the upper abdomen and in the lower pelvis. 3. There is nonspecific edema in the subcutaneous soft tissues of the abdominal wall and mesenteric fat. 4. Mild right lower lung atelectasis with small effusion. She has not had the liver workup as of yet. She was recently started on Synthroid and vitamin D. She does not take any herbal supplements. She denies any known history of hepatitis or family members with known liver disease. liver bx pending. MELD 6. MARANDA neg, AFP 6.4, iron 60, TIBC 59, %sat 100, ferritin 779. hep neg, rest of w/.u pending - Ascites, increasing abdominal girth and lower extremity swelling for 2 days- Small amount of free fluid on CT- not enough for paracentesis. She does mention chills and WBC 13.9. Will add Ceftriaxone for SBP prophylaxis. She is not on any diuretics at home. - Nausea and vomiting, decreased appetite, early satiety, and a 40 pound weight loss over the past 6 months. She denies any abdominal pain, changes in bowels, melena, or hematochezia. She denies any history of varices or PUD. She has never had an EGD. She last had colonoscopy about 2 years ago in [place] and she reports this was normal without polyps. - Macrocytosis. States quit drinking 1 year ago. MCV 10.7.3. B12 1806, Folate 5.7. - Leukcytosis. Does c/o urinary frequency, urgency. U/a- culture not indicated. WBC 13.9 - Coagulopathy, Thrombocytopenia. PT 16.1, INR 1.5, APTT 49.2 Plt 146. - Hypothyroidism, Vit. D Deficiency, per attending PLAN: - await liver bx - await ASMA, AMA - await Ceruloplasmin, Alpha 1 Antitrypsin - continue diuretics - low sodium diet after liver bx - Protonix 40mg IV daily - Supportive care - Further recommendations to follow based on results of above - PT seen and examined by Dr. Pringle and myself and this note is written on her behalf (Sridevi Mariee) Sridevi Mariee Dec 01, 2016 15:19 Lauren Pringle MD Dec 01, 2016 18:35
--- NOTE | 2016-12-01 15:48 | RADRPT ---
EXAM DATE/TIME: 12/01/2016 14:32 [facility] COMPARISON: No previous studies available for comparison. INDICATIONS : Elevated liver finction, cirrhosis. SEDATION TIME: 30 minutes BIOPSY SITE: Right upper quadrant MEDICATION(S): 1.) 2 mg midazolam (Versed) IV 2.) 100 mcg fentanyl (Sublimaze) IV DEVICE(S): 1.) 18 gauge Temno core biopsy needle MEDICAL HISTORY : Cirrhosis. Hypothyroidism. SURGICAL HISTORY : Appendectomy. Hysterectomy. ENCOUNTER: Initial ACUITY: 1 day PAIN SCORE: 0/10 LOCATION: Right upper quadrant A total of one core specimen(s) were obtained and sent to the laboratory for pathologic evaluation. PROCEDURE: 1. CT guided liver biopsy. 2. Conscious sedation with continuous EKG and oximetry monitoring. 3. EKG and oximetry remained stable throughout the procedure. Prior to the procedure informed consent was obtained. Any appropriate prior imaging studies were rev iewed. Using automated exposure control and adjustment of the mA and/or kV according to patient size, radiat ion dose was kept as low as reasonably achievable to obtain optimal diagnostic quality images. DICOM format image data is available electronically for review and comparison. The site was prepped in a sterile fashion. Full sterile technique was used, including cap, mask, tristian rile gloves and gown and a large sterile sheet. Hand hygiene and 2% chlorhexidine and/or betadine/al cohol prep was utilized per protocol for cutaneous antisepsis. The skin and subcutaneous tissues wer e infiltrated with local anesthetic solution. With CT guidance the previously identified target was localized. Biopsy was performed using the presc ribed needle as above. Adequate hemostasis was obtained with compression at the puncture site. Follow-up CT scan reveals no definite hemorrhage. Patient did have minimal ascites pre-and post scann ing. The patient tolerated the procedure well and there were no complications. The patient was returned to the Radiology Outpatient Unit in stable condition. CONCLUSION: Uncomplicated CT guided biopsy of the liver. Saad Scott MD on December 01, 2016 at 15:46 Board Certified Radiologist. This report was verified electronically.
[2016-12-02 03:50] LABS: MITOCHONDRIAL ABS 41.9 U (())
== END 2016-12-01 19:51 | disposition home or self-care (01) ==
LOC: NEPE 18:41 → NEDA 11-30 00:11 → NEPHCDU 11-30 01:10
PROVIDERS: ADMIT Hospitalist; ATTEND Hospitalist
DX: R74.8 Abnormal levels of other serum enzymes (principal); E80.6 Other disorders of bilirubin metabolism; K76.0 Fatty (change of) liver, not elsewhere classified; K72.90 Hepatic failure, unspecified without coma; K74.60 Unspecified cirrhosis of liver; G24.9 Dystonia, unspecified; G62.9 Polyneuropathy, unspecified; R63.0 Anorexia; R68.83 Chills (without fever); R60.0 Localized edema; R16.0 Hepatomegaly, not elsewhere classified; J98.11 Atelectasis; R18.8 Other ascites; D75.89 Other specified diseases of blood and blood-forming organs; K75.81 Nonalcoholic steatohepatitis (NASH); D68.9 Coagulation defect, unspecified; D69.6 Thrombocytopenia, unspecified; R79.89 Other specified abnormal findings of blood chemistry; R35.0 Frequency of micturition; R39.15 Urgency of urination; R53.83 Other fatigue; R68.81 Early satiety; R63.4 Abnormal weight loss; R11.2 Nausea with vomiting, unspecified; R53.1 Weakness; R10.9 Unspecified abdominal pain; R06.00 Dyspnea, unspecified; G47.00 Insomnia, unspecified; E03.9 Hypothyroidism, unspecified; F10.21 Alcohol dependence, in remission; F32.9 Major depressive disorder, single episode, unspecified; F17.290 Nicotine dependence, other tobacco product, uncomplicated; Z79.899 Other long term (current) drug therapy; Z66 Do not resuscitate
CPT/HCPCS: 47000; 74177; 74181; 76377; 77012; 80053; 80074; 81001; 82103; 82105; 82140; 82248; 82390; 82607; 82728; 82746; 82977; 83520; 83540; 83550; 83690; 85025; 85610; 85730; 86038; 86255; 88307; 88313; 93005; 99285; G0378; J0696; J2250; J3010; Q9967